=== PATIENT | female | born 1950 | race Hispanic/Latino ===

== ENCOUNTER 2018-12-21 06:15 | Observation (INO) | payer MEDICARE ==
[2018-12-17 09:50] VITALS: BP 180/73
[2018-12-17 10:03] LABS: BASOPHILS % (AUTO) 0.5 % (0.0-5.0); EOSINOPHILS % (AUTO) 0.8 % (0.0-8.0); HEMATOCRIT 39.7 % (36-48); LYMPHOCYTES % (AUTO) 25.2 % (21.0-51.0); MEAN CORPUSCULAR HEMOGLOBIN 28.6 pg (27.0-33.0); MEAN CORPUSCULAR HGB CONC 33.3 g/dL (32.0-36.0); MONOCYTES % (AUTO) 5.6 % (3.0-13.0); NEUTROPHILS % (AUTO) 67.9 % (40.0-77.0); PLATELET COUNT (AUTO) 304 K/uL (130-400); RED BLOOD CELL COUNT(AUTO) 4.62 MIL/uL (4.00-5.50); RED CELL DISTRIBUTION WIDTH 14.2 % (11.0-15.5); WHITE BLOOD COUNT (AUTO) 7.1 K/uL (4.8-10.8)
[2018-12-17 10:15] LABS: INR 0.96 (0.85-1.15); PARTIAL THROMBOPLASTIN TIME 26.9 SEC (26.3-35.5); PROTHROMBIN TIME 10.1 SEC (9.6-11.6)
[2018-12-17 10:19] LABS: CREATININE 0.6 mg/dL (0.5-1.5)
[2018-12-17 10:24] LABS: APPEARANCE,URINE Clear (CLEAR); BILIRUBIN,URINE Negative (NEGATIVE); COLOR,URINE Yellow (YELLOW); GLUCOSE, URINE (UA) >=1000 mg/dL (NEGATIVE); KETONES,URINE Trace mg/dL (NEGATIVE); LEUKOCYTE ESTERASE ,URINE Negative (NEGATIVE); NITRATE,URINE Negative (NEGATIVE); OCCULT BLOOD,URINE Negative (NEGATIVE); PROTEIN,URINE Negative (NEGATIVE); UROBILINOGEN,URINE 0.2 mg/dL (0.2-1.0)
[2018-12-17 10:57] LABS: BACTERIA,URINE Few /HPF (None Seen)
[2018-12-17 10:58] LABS: RBC,URINE None Seen /HPF (0-1); WBC,URINE 0-1 /HPF (0-1); YEAST,URINE BUDDING Few /HPF (None Seen)
[2018-12-21] VITALS (13 sets, daily range): BP systolic 115–194; BP diastolic 53–77
[~2018-12-21] VITALS: Ht 144.8 cm; Wt 65.6 kg
[~2018-12-21 06:15] MED LIST: ACET-66 PO; ASPI-1197 PO; CHOL500050 PO; CLOP75TA32 PO; EMPA25TA PO; INSU500I SQ; ISOS60TA4 PO; LEVO25TA54 PO; METO100T14 PO; NITR0.4T50 SL; OMEP20TA25 PO; OMEP40CA37 PO; PREG100C PO; RANO500T3 PO; ROSU40TA20 PO; SODIUM CHLORIDE 0.9% 500ML 500 ML IV SCH
[2018-12-21] MEDS ORDERED: SODIUM CHLORIDE 0.9% 1000ML 1,000 ML IV ONE (06:36)
[2018-12-21] MEDS ORDERED: ALPRAZOLAM 0.5 MG TABLET PO SCH (07:15)
[2018-12-21] MEDS ORDERED: ERGOCALCIFEROL (VITAMIN D2) 50,000 UNIT CAPSULE PO SCH (09:00)
[2018-12-21] MEDS ORDERED: NITROGLYCERIN 5 MG/ML 10 ML VIAL IV ONE (09:48)
[2018-12-21] MEDS ORDERED: SODIUM BICARB 50MEQ 50ML VIAL ONE (09:48)
[2018-12-21] MEDS ORDERED: IOHEXOL-350 50ML VIAL IV ONE ×2 (09:48→10:50)
[2018-12-21] MEDS ORDERED: HEPARIN SODIUM 1000UNIT/ML 10ML VIAL ONE (09:49)
[2018-12-21] MEDS ORDERED: LIDOCAINE HCL 2% 20ML ONE (09:49)
[2018-12-21] MEDS ORDERED: IOHEXOL 350 MG/ML 100ML INFUS..BTL IV ONE (09:49)
[2018-12-21] MEDS ORDERED: MEPERIDINE-PF 25 MG/ML SYG ONE (10:13)
[2018-12-21] MEDS ORDERED: MIDAZOLAM HCL 1 MG/ML 2ML VIAL ONE (10:13)
[2018-12-21] MEDS ORDERED: IOHEXOL-350 75 ML VIAL IV ONE (10:54)
[2018-12-21] MEDS ORDERED: ACETAMINOPHEN-CODEINE 300/30MG TAB PO PRN ×2 (11:30)
[2018-12-21] MEDS ORDERED: ONDANSETRON HCL 4 MG/2 ML VIAL IVP PRN (11:30)
[2018-12-21] MEDS ORDERED: TEMAZEPAM 30 MG CAP PO PRN (11:30)
[2018-12-21] MEDS ORDERED: NITROGLYCERIN 50 MG/D5% WATER 1 BOT IV PRN (11:30)
[2018-12-21] MEDS ORDERED: SODIUM CHLORIDE 0.9% 1000ML 1,000 ML IV SCH (11:30)
[2018-12-21] MEDS ORDERED: NITROGLYCERIN 0.4 MG SL TAB SL SCH (11:30)
[2018-12-21] MEDS ORDERED: ALPRAZOLAM 0.5 MG TABLET PO PRN (11:45)
[2018-12-21] MEDS ORDERED: INSULIN HUMULIN R 100 UNIT/ML 3ML SQ SCH ×2 (12:00→21:00)
--- NOTE | 2018-12-21 12:02 | NUR ---
RECEIVED FROM MUSHROOM SPA[facility]ER VIA BED ACCOMPANIED BY Lorena VALENCIA RN. PT. AAOX3, RESP.'S EVEN AND UNLABORED. DENIES ANY SOB, DENIES ANY CURRENT PAIN. RIGHT GROIN SOFT, NO ECCHYMOSIS OR HEMATOMA NOTED; SOFT TO PALPATION. INSTRUCTED PT. ON STRICT BR PER MD ORDERS, VERBALIZED UNDERSTANDING. BED PLACED IN [place]SE [place] FOR COMFORT. CALL LIGHT WITHIN REACH, VERBALIZED ABILITY TO USE. SIDE RAILS UP.
--- NOTE | 2018-12-21 12:15 | NUR ---
Kimberli LIRIANO PA-C, IN ROOM SPEAKING WITH PT.
[2018-12-21] MEDS: ACETAMINOPHEN EXTRA STRENGTH 500 MG TABLET PO SCH ×2 (14:00→20:10)
--- NOTE | 2018-12-21 17:00 | NUR ---
CONT.'S RESTING IN BED. HOB ELEVATED TO 20 DEGREES FOR DINNER; ASSISTED BY DAUGHTER AT BEDSIDE.
--- NOTE | 2018-12-21 18:10 | NUR ---
BR COMPLETED. RIGHT GROIN SOFT, NO ECCHYMOSIS OR HEMATOMA. ALLOWED TO SIT UP IN BED AND INFORMED ABLE TO STAND UP IF WISHES. PT. AND DAUGHTER AT BEDSIDE VERBALIZED MUTUAL UNDERSTANDING.
[2018-12-21] MEDS: RANOLAZINE 500 MG TAB.SR.12H PO SCH (20:04)
[2018-12-21] MEDS: METOPROLOL TARTRATE 50 MG TAB PO SCH (20:04)
[2018-12-21] MEDS ORDERED: PREGABALIN 100 MG CAPSULE PO SCH (21:00)
[2018-12-21] MEDS ORDERED: ATORVASTATIN CALCIUM 40 MG TABLET PO SCH (21:00)
[2018-12-22 03:37] LABS: HEMATOCRIT 33.7 % (36-48); MEAN CORPUSCULAR HEMOGLOBIN 28.9 pg (27.0-33.0); MEAN CORPUSCULAR HGB CONC 33.7 g/dL (32.0-36.0); MEAN CORPUSCULAR VOLUME 85.8 fL (79-99); PLATELET COUNT (AUTO) 223 K/uL (130-400); RED BLOOD CELL COUNT(AUTO) 3.93 MIL/uL (4.00-5.50); WHITE BLOOD COUNT (AUTO) 7.4 K/uL (4.8-10.8)
[2018-12-22 03:48] LABS: CREATININE 0.6 mg/dL (0.5-1.5); POTASSIUM 3.9 mmol/L (3.5-5.1)
[2018-12-22 03:53] VITALS: BP 128/65
[2018-12-22] MEDS ORDERED: PANTOPRAZOLE SODIUM 40 MG TABLET.DR PO ONE (06:02)
[2018-12-22] MEDS ORDERED: LEVOTHYROXINE 25 MCG TABLET PO SCH (06:30)
[2018-12-22 07:00] VITALS: BP 162/73
[2018-12-22] MEDS ORDERED: INSULIN HUMULIN R 100 UNIT/ML 3ML SQ SCH ×2 (07:30)
[2018-12-22] MEDS ORDERED: PANTOPRAZOLE SODIUM 40 MG TABLET.DR PO SCH (07:30)
[2018-12-22] MEDS: METOPROLOL TARTRATE 50 MG TAB PO SCH (07:37)
[2018-12-22] MEDS: RANOLAZINE 500 MG TAB.SR.12H PO SCH (07:37)
[2018-12-22] MEDS: ACETAMINOPHEN EXTRA STRENGTH 500 MG TABLET PO SCH (07:37)
--- NOTE | 2018-12-22 07:45 | NUR ---
ASSESSMENT PT IS AAOX4 DENIES CP DENIES SOB DENIES NV NO COMPLAINTS RESTING IN BED, RIGHT GROIN DRESSING IS CLEAN DRY AND INTACT. AM MEDS TAKEN. CALL LIGHT WITHIN REACH.
[2018-12-22] MEDS ORDERED: ISOSORBIDE MONO 60 MG TAB.SR PO SCH (09:00)
[2018-12-22] MEDS ORDERED: EMPAGLIFLOZIN 25 MG PO SCH (09:00)
[2018-12-22] MEDS ORDERED: CLOPIDOGREL BISULFATE 75 MG TAB PO SCH (09:00)
[2018-12-22] MEDS ORDERED: ASPIRIN 81MG TAB.CHEW PO SCH (09:00)
--- NOTE | 2018-12-22 10:30 | NUR ---
MD ROUNDS DR TAPIA AND DR CESAR ROUNDED. OK TO DC HOME TODAY.
[2018-12-22 11:00] VITALS: BP 148/59
--- NOTE | 2018-12-22 13:10 | NUR ---
DC INSTRUCTIONS GIVEN TO PATIENT AND FAMILY AGREE TO FOLLOW UP WITH [facility] ORDERED, ALL QUESTIONS ANSWERED, PIV REMOVED CATH TIP INTACT, TELE PACK REMOVED. ALL BELONGINGS TAKEN, DOWN VIA WC WITH FAMILY AND NURSE AIDE.
== END 2018-12-22 13:20 | disposition home or self-care (01) ==
LOC: DAH 06:15 → 2AH 06:16 → DAH 06:16
PROVIDERS: ADMIT Internal Medicine; ATTEND Internal Medicine
DX: I25.119 Atherosclerotic heart disease of native coronary artery with unspecified angina pectoris (principal); I10 Essential (primary) hypertension; E03.9 Hypothyroidism, unspecified; E11.9 Type 2 diabetes mellitus without complications; E78.5 Hyperlipidemia, unspecified; Z82.0 Family history of epilepsy and other diseases of the nervous system; Z82.3 Family history of stroke; Z82.49 Family history of ischemic heart disease and other diseases of the circulatory system; Z83.3 Family history of diabetes mellitus; Z79.899 Other long term (current) drug therapy; Z95.5 Presence of coronary angioplasty implant and graft; Z79.01 Long term (current) use of anticoagulants
CPT/HCPCS: 36415 ×3; 71045; 80048 ×2; 80061; 81001; 82948 ×4; 85025; 85027; 85347; 85610; 85730; 92921; 93005 ×2; A4606; C1725; C1760; C1769; C1874; C1887; C1894; C9600; G0378 ×31; J1644 ×2; J2175; J2250; J3490 ×3; J7030 ×2; Q9965; Q9967 ×3; 93458; 99156; 99157

== ENCOUNTER 2022-11-03 05:48 | Day surgery (SDC) | payer MEDICARE ==
[2022-10-30 11:10] VITALS: BP 142/62
[2022-10-30 11:25] LABS: BASOPHILS % (AUTO) 0.4 % (0.0-5.0); EOSINOPHILS % (AUTO) 3.4 % (0.0-8.0); HEMATOCRIT 36.2 % (36-48); LYMPHOCYTES % (AUTO) 21.2 % (21.0-51.0); MEAN CORPUSCULAR HEMOGLOBIN 27.7 pg (27.0-33.0); MEAN CORPUSCULAR HGB CONC 30.9 g/dL (32.0-36.0); MEAN CORPUSCULAR VOLUME 89.4 fL (79-99); MONOCYTES % (AUTO) 8.4 % (3.0-13.0); PLATELET COUNT (AUTO) 312 K/uL (130-400); RED BLOOD CELL COUNT(AUTO) 4.05 MIL/uL (4.00-5.50); RED CELL DISTRIBUTION WIDTH 14.6 % (11.0-15.5); WHITE BLOOD COUNT (AUTO) 10.5 K/uL (4.8-10.8)
[2022-10-30 11:36] LABS: POTASSIUM 4.5 mmol/L (3.5-5.1)
[2022-10-30 11:40] LABS: APPEARANCE,URINE CLEAR (CLEAR); BILIRUBIN,URINE NEGATIVE (NEGATIVE); COLOR,URINE LIGHT-YELLOW (YELLOW); GLUCOSE, URINE (UA) >=1000 mg/dL (NEGATIVE); KETONES,URINE NEGATIVE (NEGATIVE); LEUKOCYTE ESTERASE ,URINE NEGATIVE Leu/uL (NEGATIVE); NITRATE,URINE NEGATIVE (NEGATIVE); PH,URINE 6.5 (5.0-8.0); PROTEIN,URINE 50 mg/dL (NEGATIVE); UROBILINOGEN,URINE 0.2 mg/dL (0.2-1.0)
[2022-10-30 11:45] LABS: BACTERIA,URINE RARE /HPF (None Seen); RBC,URINE 0-1 /HPF (0-1); SQUAMOUS EPITHELIAL CELL,UR MOD /HPF (0-2); TRANSITIONAL EPI CELLS,URINE RARE /HPF (None Seen)
[2022-10-30 11:54] LABS: B-TYPE NATRIURETIC PEPTIDE 29 pg/mL (0-100)
[2022-10-30 12:08] LABS: INR 0.94 (0.85-1.15); PROTHROMBIN TIME 10.3 SEC (9.6-11.6)
[2022-10-30 12:10] LABS: PARTIAL THROMBOPLASTIN TIME 25.9 SEC (26.3-35.5)
[~2022-11-03] VITALS: Ht 142.2 cm; Wt 78.8 kg
[2022-11-03] VITALS (10 sets, daily range): BP systolic 124–181; BP diastolic 52–78
[~2022-11-03 05:48] MED LIST changes: -ACET-66 PO; -ASPI-1197 PO; -CHOL500050 PO; +CLON0.1T PO; +FURO40TA5 PO; +INSU500V SQ; -ISOS60TA4 PO; -LEVO25TA54 PO; +LEVO75TA10 PO; +LINA5TAB PO; +LOSA100T58 PO; +MAGN500C4 PO; -NITR0.4T50 SL; -OMEP20TA25 PO; -OMEP40CA37 PO; +PANT40TA54 PO; +POTA-79 PO; -PREG100C PO; -RANO500T3 PO; -ROSU40TA20 PO; +ROSU40TA21 PO; -SODIUM CHLORIDE 0.9% 500ML 500 ML IV SCH
[2022-11-03] MEDS ORDERED: 0.9%NACL 1000ML 1,000 ML IV ONE (05:52)
[2022-11-03] MEDS ORDERED: NITROGLYCERIN 50MG VIAL ONE (07:11)
[2022-11-03] MEDS ORDERED: HEPARIN 10,000 UNIT/10ML (1,000 UNIT/ML) VIAL ONE (07:11)
[2022-11-03] MEDS ORDERED: MEPERIDINE-PF 25 MG/ML SYG ONE ×2 (07:12→07:40)
[2022-11-03] MEDS ORDERED: MIDAZOLAM HCL 1 MG/ML 2ML VIAL ONE ×2 (07:12→07:40)
[2022-11-03] MEDS ORDERED: IOHEXOL-350 50ML VIAL IV ONE (07:12)
[2022-11-03] MEDS ORDERED: LIDOCAINE HCL 400MG/20ML VIAL ONE (07:13)
[2022-11-03] MEDS ORDERED: IOHEXOL 350 MG/ML 100ML INFUS..BTL IV ONE (07:16)
[2022-11-03] MEDS ORDERED: NICARDIPINE 25MG INJ IV ONE (07:30)
[2022-11-03] MEDS ORDERED: DEXTROSE 50%-WATER 50 ML DISP.SYRIN IV PRN (08:00)
[2022-11-03] MEDS ORDERED: 0.9%NACL 1000ML 1,000 ML IV SCH ×2 (08:00)
[2022-11-03] MEDS ORDERED: INSULIN HUMULIN R 100 UNIT/ML 3ML SQ SCH (11:30)
== END 2022-11-03 12:20 | disposition home or self-care (01) ==
LOC: DAH 05:48
PROVIDERS: ATTEND Internal Medicine Cardiovascular Disease
DX: I25.119 Atherosclerotic heart disease of native coronary artery with unspecified angina pectoris (principal); I11.0 Hypertensive heart disease with heart failure; I50.32 Chronic diastolic (congestive) heart failure; E03.9 Hypothyroidism, unspecified; K21.9 Gastro-esophageal reflux disease without esophagitis; E78.5 Hyperlipidemia, unspecified; E11.9 Type 2 diabetes mellitus without complications; I25.2 Old myocardial infarction; Z98.890 Other specified postprocedural states; Z79.899 Other long term (current) drug therapy; Z79.01 Long term (current) use of anticoagulants; Z79.4 Long term (current) use of insulin; Z79.82 Long term (current) use of aspirin; Z86.73 Personal history of transient ischemic attack (TIA), and cerebral infarction without residual deficits; Z95.5 Presence of coronary angioplasty implant and graft
CPT/HCPCS: 80048; 83880; 85025; 85610; 85730; 81001; 36415; 71045; 93005; 93454; 82948 ×2; C1894 ×3; C1769; J3490 ×3; J7030; J1644 ×2; J2250 ×2; J2175 ×2; Q9967; A4215; A4222; A4221; A4663; A4216; A4606; Q9965; A4223 ×3; 96360; 96361; 99156; 99157